=== PATIENT | female | born 2000 | race African-American/Black ===

== ENCOUNTER 2022-05-23 11:45 | Emergency (ER) | payer BC, SELFPAY ==
[2022-05-23 12:16] VITALS: BP 105/69; PULSE 71; RESP 18; TEMP 36.1; O2SAT 100
--- NOTE | 2022-05-23 13:09 | ED.GENADULT ---
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 She requests testing for STIs as she had protected sexual intercourse prior to symptom onset. Denies pelvic pain, abdominal pain, nausea, vomiting, fevers, chills. Her last menstrual cycle was beginning of April was normal for her. Additionally she is requesting a refill on her albuterol inhaler, as she recently moved to the area and has not yet established with a PCP. Denies cough, fevers, shortness of breath, wheezing. <KYRIE Sorto Last Filed: 05/23/22 19:00> Related Data Allergies/adverse reactions: Allergies Allergy/AdvReac Type Severity Reaction Status Date / Time No Known Allergies Allergy Verified 05/23/22 12:32 <KYRIE Sorto Last Filed: 05/23/22 19:00> Review of Systems Review of Systems: Gen: Denies fevers or chills Eyes: Denies eye pain or visual change ENT: Denies congestion Respiratory: Denies shortness of breath or cough CV: Denies chest pain or palpitations GI: Denies abdominal pain nausea, emesis or diarrhea : Reports vaginal odor and itching. Denies burning, urgency, frequency or hematuria Musculoskeletal: Denies back pain or muscle pain Neuro: Denies numbness, tingling, weakness or focal weakness Skin: Denies rash Except as documented, all other systems reviewed and negative <KYRIE Sorto Last Filed: 05/23/22 19:00> Exam Narrative: APPEARANCE: Well appearing, no pain in distress, well-nourished. Head: Normocephalic and atraumatic. EYES: PERRLA/EOMI, conjunctivae clear NOSE: No nasal drainage EARS: External ear normal in appearance THROAT: Oropharynx is clear. Mucous membranes are moist. NECK: Supple. No adenopathy, no masses. RESPIRATORY: Airway patent, respirations nonlabored. Clear to auscultation bilaterally, no rales, rhonchi, wheezing. CARDIOVASCULAR: Regular rate and rhythm without murmurs, rubs, or gallops. ABDOMINAL: Normoactive bowel sounds. Soft, nontender, nondistended. No rebound tenderness or guarding. : exam perfomed with thermoplastic technician tash, moderate amount of thin white discharge noted in vaginal vault, whiff test positive, no CMT MUSCULOSKELETAL: Extremities are warm and well-perfused. Moves all extremities well. No edema. NEURO: Normal speech. No focal neurologic deficits. SKIN: Skin is warm and dry. No rashes. PSYCHIATRIC: Normal affect/mood. <Clarissa Martinez PA-C - Last Filed: 05/23/22 19:00> Course WARP CHANGER/PA Physician Supervision For this patient encounter, I reviewed the WARP CHANGER or PA documentation, treatment plan, and medical decision making <Jones Lima MD - Last Filed: 05/23/22 22:30> Vital Signs Vital signs: Vital Signs Temperature 97.0 F L 05/23/22 12:16 Pulse Rate 71 05/23/22 12:16 Respiratory Rate 18 05/23/22 12:16 Blood Pressure 105/69 05/23/22 12:16 Pulse Oximetry 100 05/23/22 12:16 Oxygen Delivery Room Air 05/23/22 12:16 Temperature 97.0 F L 05/23/22 12:16 Pulse Rate 60 05/23/22 14:30 Respiratory Rate 13 05/23/22 14:30 Blood Pressure 123/89 05/23/22 14:30 Pulse Oximetry 100 05/23/22 14:30 Oxygen Delivery Room Air 05/23/22 12:16 <Clarissa Martinez PA-C - Last Filed: 05/23/22 19:00> Vital Signs Temperature 97.0 F L 05/23/22 12:16 Pulse Rate 71 05/23/22 12:16 Respiratory Rate 18 05/23/22 12:16 Blood Pressure 105/69 05/23/22 12:16 Pulse Oximetry 100 05/23/22 12:16 Oxygen Delivery Room Air 05/23/22 12:16 Temperature 97.0 F L
[2022-05-23 14:29] LABS: Appearance Urine Clear (Clear); Bilirubin Urine Negative (Negative); Blood Urine Negative (Negative); Color Urine Yellow (Yellow); Glucose Urine UA Negative (Negative); Ketones Urine Negative (Negative); Leukocyte Esterase Ur Negative LEU/UL (Negative); Nitrate Urine Negative (Negative); Protein Urine Negative (Negative); Specific Grav Ur 1.025 (1.001-1.035); Urobilinogen Urine 0.2 mg/dL (<2.0); pH Urine 6.5 (5.0-9.0)
[2022-05-23 14:30] VITALS: BP 123/89; PULSE 60; RESP 13; O2SAT 100
[2022-05-23 14:31] LABS: Add Urine Microscopic? NO
== END 2022-05-23 14:45 | disposition home or self-care (01) ==
PROVIDERS: Physician Assistant; Emergency Provider Emergency Medicine
DX: N76.0 Acute vaginitis (principal)
CPT/HCPCS: 81003; 81025; 87070; 87491; 87591; 87808; 99284